=== PATIENT | male | born 1960 | race Two or more races ===

== ENCOUNTER → 2024-11-03 | Outpatient (CLI) | payer MEDICAID, SELFPAY ==
[2024-11-03 08:08] LABS: Collection Type, Urine Clean Catch
[2024-11-03 08:28] LABS: Basophils # (Auto) 0.0 Thou/mm3 (0.0-0.2); Basophils % (Auto) 0 % (0-2.5); Eosinophils # (Auto) 0.5 Thou/mm3 (0.0-0.5); Eosinophils % (Auto) 5 % (0-10); Hematocrit 29.0 % (41.0-53.0); Immature Granulocytes Auto 0.28 Thou/mm3 (0.00-0.00); Lymphocytes # (Auto) 0.9 Thou/mm3 (1.0-4.8); Lymphocytes % (Auto) 7 % (10-50); Mean Corpuscular HGB Conc 30.0 g/dl (31.0-37.0); Mean Corpuscular Hemoglobin 24.9 pg (25.0-35.0); Mean Corpuscular Volume 83 fL (80-100); Monocytes # (Auto) 0.9 Thou/mm3 (0.0-0.8); Monocytes % (Auto) 7 % (0-12); Neutrophils # (Auto) 9.3 Thou/mm3 (1.8-7.7); Neutrophils % (Auto) 78 % (37-80); Nucleated Red Blood Cell # 0.00 Thou/mm3 (0.00-0.00); Nucleated Red Blood Cell % 0 /100 WBC (0); Platelet Count 481 Thou/mm3 (140-440); RDW Standard Deviation 53.7 fL (35.1-43.9); Red Blood Count 3.49 Miln/mm3 (4.50-5.90); White Blood Count 11.9 Thou/mm3 (3.8-10.6)
[2024-11-03 08:44] LABS: Vitamin D 25 Hydroxy Total 17.4 ng/mL (7.3-40.2)
[2024-11-03 08:45] LABS: Hemoglobin 8.7 g/dL (13.5-16.0)
[2024-11-03 08:52] LABS: Albumin, Serum 3.7 gm/dL (3.4-4.8); Anion Gap 12 (7-16); BUN/Creatinine Ratio 11 Ratio (12-20); Blood Urea Nitrogen 16 mg/dL (9-23); Calcium 10.1 mg/dL (8.3-10.6); Calcium (Corrected) 10.3 mg/dL (8.5-10.1); Carbon Dioxide 25.1 mMol/L (20.0-31.0); Chloride 101 mMol/L (98-107); Creatinine (Component) 1.4 mg/dL (0.6-1.3); Glucose 108 mg/dL (74-106); Osmolality,Calculated 277 (275-295); Phosphorous 2.6 mg/dL (2.4-5.1); Potassium 5.2 mMol/L (3.4-5.1); Sodium 138 mMol/L (136-145); eGFR 55 See Note
[2024-11-03 08:55] LABS: Parathyroid Hormone Intact 90.9 pg/ml (18.5-88.0)
[2024-11-03 08:59] LABS: Bilirubin,Urine Negative (Negative); Blood,Urine Negative (Negative); Clarity,Urine Clear (Clear/Hazy); Color,Urine Yellow (Lt Yel-Yel); Glucose, Urine Negative (Negative); Ketones,Urine Negative (Negative); Leukocyte Esterase,Urine Negative (Negative); Nitrite,Urine Negative (Negative); PH,Urine 5.5 (5.0-7.0); Protein,Urine 1+ (Neg - Trace); RBC,Urine 1 /hpf (0-3); Specific Gravity,Urine 1.023 (1.001-1.035); Squamous Epithelial Cell,Urine 2 /hpf (0-5); Urobilinogen,Urine 2.0 mg/dL (0.0-1.0); WBC,Urine 5 /hpf (0-5)
[2024-11-03 09:05] LABS: Creatinine MALB Rnd Ur 153 mg/dL (30-125); Microalbumin Creat Ratio 26 mg/gCrea (<30); Microalbumin, Random Urine 40 mg/L (0-300)
== END | disposition home or self-care (01) ==
LOC: COPL 07:31
PROVIDERS: PCP Family Medicine; Referring Provider Internal Medicine; Visit Provider Internal Medicine
DX: N17.9 Acute kidney failure, unspecified (principal); I10 Essential (primary) hypertension; E83.52 Hypercalcemia
CPT/HCPCS: 36415; 80069; 81001; 82043; 82306; 82570; 83970; 85025

== ENCOUNTER 2024-12-10 08:04 | Outpatient (RCR) | payer MEDICAID, SELFPAY ==
--- NOTE | 2024-11-30 11:05 | CTCFLWUP_ITS ---
Patient: RADHA PENALOZA : 1960 Page 2 of 5 FOLLOW UP NOTE DATE OF SERVICE: 11/30/2024 NAME: RADHA PENALOZA ACCOUNT: [id number] : 1960 AGE: 64 ONCOLOGY HISTORY: DIAGNOSIS: Diffuse large B-cell lymphoma, unspecified site [ICD10] C83.30 DATE OF DIAGNOSIS: 10/04/2024 STAGE/TNM: TREATMENT HISTORY: Care?Plan Start?Date Cycle Day Intent CHOP?+?Rituximab?375?mg/m*2?camacho 12/10/2024 1 21 Palliative HISTORY OF PRESENT ILLNESS: Patient here to establish care for diffuse large B-cell lymphoma. Patient received first cycle at [facility]. Patient do not have a port. Patient tolerated first cycle well OTHER MEDICAL HISTORY/CONDITIONS: FAMILY HISTORY: Cancer?History:?Denies SOCIAL HISTORY: MEDICATIONS: 1. acetaminophen - 325 mg tab As directed 2. allopurinol - 300 mg 1 tab Daily 3. chlorhexidine gluconate - 0.12 % 15 mL Daily 4. diclofenac sodium - 1 % Daily 5. docusate sodium - 50 mg 2 Capsule Twice a Day 6. furosemide - 20 mg 1 tab Daily 7. metFORMIN - 500 mg 1 tab Twice a Day 8. ondansetron - 4 mg 1 tab Twice a Day 9. ondansetron - 16 mg 1 tab every 8 hrs as needed for nausea 10. oxycodone - 5 mg 1 tab Every 6 Hours 11. pantoprazole - 40 mg 1 Daily Medications Last Reconciled by Radha Maguire RN on 11/30/2024 ALLERGIES: No Known Drug Allergies REVIEW OF SYSTEMS: A complete 14-point review of systems was performed and is negative except as noted in interval history. PHYSICAL EXAMINATION: VITAL SIGNS: Temperature?97.9, B/P?113/68, Height?61?inches, Oxygen?Saturation?96% Weight?160?lbs PAIN: 0 - No pain ECOG Performance Status: 3 - Symptomatic; limited self-care; spends >50% of time in bed, not bedridden GENERAL APPEARANCE: Appears well, in no apparent distress, appropriately interactive. HEENT: Normocephalic, no temporal wasting, normal conjunctiva, no scleral icterus, normal hearing, lips without lesions, neck normal range of motion. CARDIOVASCULAR: Not assessed. PULMONARY: Normal respiratory effort, no respiratory distress or use of accessory muscles, speaking in full sentences, no tachypnea. EXTREMITIES: No pedal edema or cyanosis. SKIN: Normal skin appearance. NEUROLOGIC: Alert and oriented x4. PSHYCHIATRIC: Appropriate affect, mood normal, behavior normal, intact thought and speech. Patient is in a wheelchair secondary to involvement of his spine with a tumor LABORATORY DATA: I have personally reviewed and interpreted each of the patient?s relevant lab tests, abnormal findings are below: Date ASSESSMENT/PLAN: Diffuse large B-cell lymphoma cycle 1 completed outside Will get records from [facility] Continue therapy with cycle 2 Echocardiogram hepatitis panel labs ordered Allopurinol for tumor lysis syndrome prophylaxis Doxycycline for skin ulcers Magic mouthwash ordered RTC in 4 weeks Echocardiogram prechemo Port catheter ORDERS: Order # Description [id number] Port Placement [id number] Hep A, B and C panel [id number] Cardiac ECHO [id number] Comprehensive Metabolic Panel - 12 + CBC with Auto Diff + Uric Acid, Serum [id number] Lactate Dehydrogenase (LDH) [id number] Ferritin + Iron Panel + Reticulocyte Count + Vitamin B-12 + Folic Acid; Serum [id number] Cardiac ECHO [id number] CBC + Comprehensive Metabolic Panel [id number] Lab Appointment [id number] Follow Up Appointment [id number] CBC + Comprehensive Metabolic Panel [id number] Lab Appointment [id number] Follow Up Appointment [id number] CBC + Comprehensive Metabolic Panel [id number] Lab Appointment [id number] Follow Up Appointment [id number] CBC + Comprehensive Metabolic Panel [id number] Lab Appointment [id number] Follow Up Appointment [id number] CBC + Comprehensive Metabolic Panel [id number] Lab Appointment [id number] Follow Up Appointment RETURN TO CLINIC: I reviewed the diagnosis, prognosis, and recommended treatment/procedure options with the patient (and/or their legal customer operations representative), including the potential benefits, risks, side effects and alternative therapies. We also discussed the option of no treatment and the possibility of clinical trial participation, if applicable. All questions were addressed, and they demonstrated understanding. They provided informed consent to proceed with the proposed plan of care. BILLING AND COMPLIANCE: I reviewed external records from providers outside my specialty as summarized above. I spent a total of 50 minutes on this patient?s care on the day of their visit excluding time spent related to any billed procedures. This time includes time spent with the patient as well as time spent documenting in the medical record, reviewing patients records and tests, obtaining history, placing orders, communicating with other healthcare professionals, counseling the patient, family or caregiver, and/or care coordination for the diagnoses above. Electronically Signed by: {Object.Sanct_ID*PnP.NameFL@M}, {Object.Sanct_ID*PnP.Suffix@U} D: {Object.Sanct_Date} T: {Object.Sanct_Time} CC: PCP: Suki Mireles Referring: Suki Mireles This document was completed utilizing speech recognition software. Grammatical errors, random word insertions, pronoun errors, and incomplete sentences are an occasional consequence of this system due to software limitations, ambient noise, and hardware issues. Any formal questions or concerns about the content, text or information contained within the body of this dictation should be directly addressed to the provider for clarification.
== END 2024-12-12 23:59 | disposition home or self-care (01) ==
LOC: SCTC 08:04
PROVIDERS: PCP Family Medicine; Referring Provider Family Medicine; Visit Provider Internal Medicine Hematology & Oncology
DX: C83.33 Diffuse large B-cell lymphoma, intra-abdominal lymph nodes (principal)
CPT/HCPCS: 99213; G0463

== ENCOUNTER 2024-12-22 08:08 | Outpatient (CLI) | payer MEDICAID, SELFPAY ==
[2024-12-20 13:22] VITALS: BMI 30.2
[2024-12-21 14:05] LABS: Basophils # (Auto) 0.1 Thou/mm3 (0.0-0.2); Basophils % (Auto) 0 % (0-2.5); Eosinophils # (Auto) 0.3 Thou/mm3 (0.0-0.5); Eosinophils % (Auto) 2 % (0-10); Hematocrit 29.0 % (41.0-53.0); Hemoglobin 8.9 g/dL (13.5-16.0); Immature Granulocytes Auto 0.71 Thou/mm3 (0.00-0.00); Lymphocytes # (Auto) 1.0 Thou/mm3 (1.0-4.8); Lymphocytes % (Auto) 6 % (10-50); Mean Corpuscular HGB Conc 30.7 g/dl (31.0-37.0); Mean Corpuscular Hemoglobin 26.4 pg (25.0-35.0); Mean Corpuscular Volume 86 fL (80-100); Monocytes # (Auto) 0.8 Thou/mm3 (0.0-0.8); Monocytes % (Auto) 5 % (0-12); Neutrophils # (Auto) 13.9 Thou/mm3 (1.8-7.7); Neutrophils % (Auto) 83 % (37-80); Nucleated Red Blood Cell # 0.00 Thou/mm3 (0.00-0.00); Nucleated Red Blood Cell % 0 /100 WBC (0); Platelet Count 358 Thou/mm3 (140-440); RDW Standard Deviation 67.1 fL (35.1-43.9); Red Blood Count 3.37 Miln/mm3 (4.50-5.90); White Blood Count 16.8 Thou/mm3 (3.8-10.6)
[2024-12-21 14:12] LABS: Blood Urea Nitrogen 17 mg/dL (9-23); Creatinine (Component) 0.8 mg/dL (0.6-1.3); Estimated Creatinine Clearance 77.6 mL/min (>60); INR 1.1 (0.9-1.3); Partial Thromboplastin Time 31.2 Seconds (22.0-36.0); Prothrombin Time 11.5 Seconds (9.0-12.2); eGFR > 60 See Note
[2024-12-22] VITALS (11 sets, daily range): BP systolic 118–148; BP diastolic 62–88; PULSE 60–73; RESP 12–20; TEMP 36.2–36.8; O2SAT 98–100
--- NOTE | 2024-12-22 09:00 | XR_ITS ---
Examination: Central line placement, triple lumen catheter. Ultrasound-guided needle placement right internal jugular vein. Fluoroscopy AP Chest, portable single view Exam date and time: December 22, 2024, 9:45 AM INDICATIONS: Diagnosis lymphoma, need for long-term intravenous antibiotic therapy. Informed consent provided Technique: A timeout was completed, verifying correct patient, procedure, site, positioning, and special equipment if applicable The patient was placed in a dependent position appropriate for central line placement based on the vein to be cannulated. The patient's right neck was prepped and draped in sterile fashion. Maximum Sterile Barrier Technique used including cap, mask, sterile gown, sterile gloves, and sterile full body drape. If ultrasound technique used: sterile gel and sterile probe covers. Hand Hygiene performed using proper scrub, soap and water, or alcohol-based hand rub. Site right portable apparatus utilized to confirm patency right internal jugular vein. Utilizing ultrasonographic guidance successful 21-gauge needle puncture right internal jugular vein Ultrasound images were recorded and stored. Successful micropuncture with a 21-gauge needle was performed. 0.18 wire guide was introduced into the IVC under fluoroscopic guidance. The wires is then exchanged for a 0.25 J-wire guide placed in the vena cava. Blunt dissection utilized for subcutaneous pocket and the upper right chest Port-A-Cath reservoir connected to 24 cm 8 E[place] line placed through a venous sheath into the superior vena cava Port-A-Cath incision site sutured Estimated blood loss 4 cc The attending radiologist was present for the entire procedure Findings: Under fluoroscopy, the tip of the catheter is in good position in the vena cava. Portable chest x-ray, post line placement, as ordered. Impression: Successful ultrasound-guided needle placement right internal jugular vein. Successful IR venous implantation Port-A-Cath Fluoroscopy 0.1 minute radiation dose 1.07 milligray 1 spot fluoroscopic chest film. AP portable chest completion procedure demonstrates satisfactory position Port-A-Cath tip SVC. May use Port-A-Cath
[2024-12-22] MEDS: fentaNYL CIT INJ 50 mCg/ML AMP 2ML 75 MCG IVP (10:29)
[2024-12-22] MEDS: LIDOCAINE 1% W/EPI 1:100K 20 ML VIAL 5 ML INFL (10:31)
[2024-12-22] MEDS: HEPARIN SOD LOCK SYR 100 UNIT/ML 500 UNIT STFIELD (10:31)
[2024-12-22] MEDS: LIDOCAINE INJ PF 1% 30 ML VIAL 5 ML EPID (10:31)
[2024-12-22] MEDS: ceFAZolin/D5W 1 GM IVPB 1 GM/50 ML BAG IV (10:31)
[2024-12-22] MEDS: SODIUM CHLORIDE 0.9% 500 ML 500 ML 20 ML IV (10:31)
--- NOTE | 2024-12-22 12:00 | PC.NURSE ---
patient transfered to private vehicle via wheelchair. education given to patient and daughter via assistant construction superintendent zac larkin. both expressed verbal understanding. site is soft, flat, slightly tender, and no signs of hematoma. dressing is clean, dry, and intact.
== END 2024-12-22 12:10 | disposition home or self-care (01) ==
PROVIDERS: Radiology Diagnostic Radiology; PCP Family Medicine; Referring Provider Internal Medicine Hematology & Oncology; Visit Provider Internal Medicine Hematology & Oncology
DX: C83.30 Diffuse large B-cell lymphoma, unspecified site (principal); Z01.812 Encounter for preprocedural laboratory examination
CPT/HCPCS: 36558; 36415; 76937; 77001; 82565; 84520; 85025; 85610; 85730; C1769; C1788; C1894; J0689; J0690; J1642; J3010; J3490; J7050; J7999

== ENCOUNTER → 2024-12-23 | Outpatient (CLI) | payer MEDICAID, SELFPAY ==
--- NOTE | 2024-12-23 09:30 | ECHO_ITS ---
Transthoracic Echo Report Ht (in): 61 Wt (lb): 140 Exam Location: Echo Lab Status: Outpatient Reroller Hand: Yohana Hanna Indications: Procedure Performed: BP: 113 / 87 HR: 84 MEASUREMENTS (Male / Female) Normal Values 2D ECHO LV Diastolic Diameter PLAX 5.4 cm 4.2 - 5.9 / 3.9 - 5.3 cm LV Systolic Diameter PLAX 3.4 cm IVS Diastolic Thickness 0.7 cm 0.6 - 1.0 / 0.6 - 0.9 cm LVPW Diastolic Thickness 1.1 cm 0.6 - 1.0 / 0.6 - 0.9 cm LV Relative Wall Thickness 0.3 LVOT Diameter 1.9 cm LA Volume Index 45.8 cm?/m? 16 - 28 cm?/m? Ascending Aorta Diameter 3.2 cm M-MODE AV Cusp Separation MM 1.3 cm DOPPLER AV Peak Velocity 125.0 cm/s AV Peak Gradient 6.3 mmHg AV Mean Gradient 3.0 mmHg AV Velocity Time Integral 21.7 cm LVOT Peak Velocity 80.7 cm/s LVOT Peak Gradient 2.6 mmHg LVOT Velocity Time Integral 17.2 cm LVOT Cardiac Index 2453.1 cm?/min?m? AV Area Cont Eq vti 2.2 cm? AV Area Cont Eq pk 1.8 cm? MV Area PHT 4.0 cm? Mitral E Point Velocity 55.7 cm/s Mitral A Point Velocity 62.7 cm/s Mitral E to A Ratio 0.9 LV E' Lateral Velocity 9.1 cm/s Mitral E to LV E' Lateral Ratio 6.1 LV E' Septal Velocity 8.2 cm/s Mitral E to LV E' Septal Ratio 6.8 TR Peak Velocity 220.0 cm/s TR Peak Gradient 19.4 mmHg PV Peak Velocity 102.0 cm/s PV Peak Gradient 4.2 mmHg FINDINGS Left Ventricle Normal left ventricular size, wall thickness, systolic function with no obvious regional wall motion . The ejection fraction is visually estimated at 60 %. Right Ventricle The right ventricle is normal in size and systolic function. Left Atrium The left atrial cavity size is mildly increased. Right Atrium The right atrium is normal by two-dimensional imaging, color flow and Doppler imaging with no structural abnormalities, no thrombus formation present. Atrial Septum The interatrial septum appears normal with no evidence of a shunt. Aorta The aorta is normal by two-dimensional, color flow and Doppler interrogation. Mitral Valve The mitral valve is normal by two-dimensional, color flow and Doppler interrogation. There is no significant mitral valve regurgitation, stenosis or prolapse. Aortic Valve Aortic valve sclerosis without stenosis. Tricuspid Valve The tricuspid valve is normal by two-dimensional, color flow and Doppler interrogation. There is mild tricuspid valve regurgitation. Pulmonic Valve The pulmonic valve is not well visualized. There is no significant pulmonic valve regurgitation. Vessels The pulmonary artery appears normal. The inferior vena cava pulmonary and hepatic veins appear normal. Pericardium The pericardium is normal by two-dimensional imaging. There is no significant pericardial effusion. CONCLUSIONS Indication: Diffuse large B-cell llymphoma, unspecified site. Normal left ventricular size and function. LVEF estimated 60% The right ventricle is normal in size and systolic function. Mild dilated LA Aortic valve sclerosis without stenosis. trace mitral and trace tricuspid regurgitation Ana Meza (Electronically Signed) Final Date: 23 December 2024 18:08
== END | disposition home or self-care (01) ==
PROVIDERS: PCP Family Medicine; Referring Provider Internal Medicine Hematology & Oncology; Visit Provider Internal Medicine Hematology & Oncology
DX: I08.1 Rheumatic disorders of both mitral and tricuspid valves (principal); I35.8 Other nonrheumatic aortic valve disorders; C83.30 Diffuse large B-cell lymphoma, unspecified site
CPT/HCPCS: 93306

== ENCOUNTER 2025-01-06 11:41 | Outpatient (RCR) | payer MEDICAID, SELFPAY ==
[2024-12-27 16:08] LABS: Immature Reticulocyte Fraction 28.9 % (2.3-13.4); Reticulocyte % (Auto) 3.5 % (0.5-1.5); Reticulocyte Absolute Auto 102.5 Biln/L (25.0-75.0); Reticulocyte Hgb Content 30.6 pg (28.0-35.0)
[2024-12-27 16:09] LABS: Basophils # (Auto) 0.0 Thou/mm3 (0.0-0.2); Basophils % (Auto) 0 % (0-2.5); Eosinophils # (Auto) 0.3 Thou/mm3 (0.0-0.5); Eosinophils % (Auto) 3 % (0-10); Hematocrit 25.7 % (41.0-53.0); Immature Granulocytes Auto 0.16 Thou/mm3 (0.00-0.00); Lymphocytes # (Auto) 1.1 Thou/mm3 (1.0-4.8); Lymphocytes % (Auto) 10 % (10-50); Mean Corpuscular HGB Conc 30.7 g/dl (31.0-37.0); Mean Corpuscular Hemoglobin 26.9 pg (25.0-35.0); Mean Corpuscular Volume 87 fL (80-100); Monocytes # (Auto) 0.5 Thou/mm3 (0.0-0.8); Monocytes % (Auto) 5 % (0-12); Neutrophils # (Auto) 8.4 Thou/mm3 (1.8-7.7); Neutrophils % (Auto) 80 % (37-80); Nucleated Red Blood Cell # 0.00 Thou/mm3 (0.00-0.00); Nucleated Red Blood Cell % 0 /100 WBC (0); Platelet Count 347 Thou/mm3 (140-440); RDW Standard Deviation 68.5 fL (35.1-43.9); Red Blood Count 2.94 Miln/mm3 (4.50-5.90); White Blood Count 10.5 Thou/mm3 (3.8-10.6)
[2024-12-27 16:19] LABS: Hemoglobin 7.9 g/dL (13.5-16.0)
[2024-12-27 16:29] LABS: Uric Acid 4.0 mg/dL (3.7-9.2)
[2024-12-27 16:33] LABS: Ferritin 1280 ng/mL (10.5-307.3); Iron 31 mcg/dL (65-175); Percent Iron Saturation 16 % (20-55); Total Iron Binding Capacity 191 mcg/dL (250-425); Unsaturated Iron Binding 160 (225-295)
[2024-12-27 16:42] LABS: Alanine Aminotransferase 12 U/L (10-49); Albumin, Serum 2.9 gm/dL (3.4-4.8); Albumin/Globulin Ratio 1.2 (1.2-2.2); Alkaline Phosphatase 152 U/L (46-116); Anion Gap 9 (7-16); Aspartate Amino Transferase 16 U/L (0-34); BUN/Creatinine Ratio 14 Ratio (12-20); Bilirubin,Total 0.3 mg/dL (0.3-1.2); Blood Urea Nitrogen 11 mg/dL (9-23); Calcium 9.1 mg/dL (8.3-10.6); Calcium (Corrected) 10.0 mg/dL (8.5-10.1); Carbon Dioxide 26.2 mMol/L (20.0-31.0); Chloride 107 mMol/L (98-107); Creatinine (Component) 0.8 mg/dL (0.6-1.3); Globulin 2.5 gm/dL (2.3-3.5); Glucose 105 mg/dL (74-106); LDH (Lactate Dehydrogenase) 175 U/L (120-246); Osmolality,Calculated 282 (275-295); Potassium 3.8 mMol/L (3.4-5.1); Sodium 142 mMol/L (136-145); Total Protein 5.4 gm/dL (5.7-8.2); eGFR > 60 See Note
[2024-12-27 17:06] LABS: Folate 5.36 ng/mL (>5.38); Hepatitis A Antibody IgM Non Reactive (Non React); Hepatitis B Core Antibody IgM Non Reactive (Non React); Hepatitis B Surface Antigen Non Reactive (Non React); Hepatitis C Antibody Non Reactive (Non React); Vitamin B12 1074 pg/mL (211-911)
== END 2025-01-11 23:59 | disposition home or self-care (01) ==
LOC: SCTC 11:41
PROVIDERS: PCP Internal Medicine; Referring Provider Internal Medicine; Visit Provider Internal Medicine Hematology & Oncology
DX: Z51.11 Encounter for antineoplastic chemotherapy (principal); C83.30 Diffuse large B-cell lymphoma, unspecified site; D64.9 Anemia, unspecified; R60.0 Localized edema; R79.89 Other specified abnormal findings of blood chemistry; R11.0 Nausea; R53.83 Other fatigue
CPT/HCPCS: 36430; 36591; 80053; 80074; 82607; 82728; 82746; 83540; 83550; 83615; 84550; 85025; 85046; 86850; 86900; 86901; 86923; 96367; 96372; 96375; 96411; 96413; 96415; 99212; 99424; 99425; A4216; J1100; J1200; J1453; J1642; J2469; J3490; J7040; J7050; J9000; J9075; J9370; P9016; Q5115; Q5122; A9270; G0463; J2506

== ENCOUNTER 2025-02-10 10:01 | Outpatient (RCR) | payer MEDICAID, SELFPAY ==
[2025-01-17 16:10] LABS: Basophils # (Auto) 0.0 Thou/mm3 (0.0-0.2); Basophils % (Auto) 0 % (0-2.5); Eosinophils # (Auto) 0.0 Thou/mm3 (0.0-0.5); Eosinophils % (Auto) 0 % (0-10); Hematocrit 26.5 % (41.0-53.0); Immature Granulocytes Auto 0.11 Thou/mm3 (0.00-0.00); Lymphocytes # (Auto) 1.3 Thou/mm3 (1.0-4.8); Lymphocytes % (Auto) 14 % (10-50); Mean Corpuscular HGB Conc 31.3 g/dl (31.0-37.0); Mean Corpuscular Hemoglobin 28.5 pg (25.0-35.0); Mean Corpuscular Volume 91 fL (80-100); Monocytes # (Auto) 0.7 Thou/mm3 (0.0-0.8); Monocytes % (Auto) 7 % (0-12); Neutrophils # (Auto) 7.0 Thou/mm3 (1.8-7.7); Neutrophils % (Auto) 76 % (37-80); Nucleated Red Blood Cell # 0.03 Thou/mm3 (0.00-0.00); Nucleated Red Blood Cell % 0 /100 WBC (0); Platelet Count 331 Thou/mm3 (140-440); RDW Standard Deviation 65.8 fL (35.1-43.9); Red Blood Count 2.91 Miln/mm3 (4.50-5.90); White Blood Count 9.2 Thou/mm3 (3.8-10.6)
[2025-01-17 16:36] LABS: Hemoglobin 8.3 g/dL (13.5-16.0)
[2025-01-17 16:47] LABS: Alanine Aminotransferase < 7 U/L (10-49); Albumin, Serum 3.1 gm/dL (3.4-4.8); Albumin/Globulin Ratio 1.4 (1.2-2.2); Alkaline Phosphatase 120 U/L (46-116); Anion Gap 8 (7-16); Aspartate Amino Transferase 12 U/L (0-34); BUN/Creatinine Ratio 13 Ratio (12-20); Bilirubin,Total 0.3 mg/dL (0.3-1.2); Blood Urea Nitrogen 13 mg/dL (9-23); Calcium 9.6 mg/dL (8.3-10.6); Calcium (Corrected) 10.3 mg/dL (8.5-10.1); Carbon Dioxide 25.9 mMol/L (20.0-31.0); Chloride 109 mMol/L (98-107); Creatinine (Component) 1.0 mg/dL (0.6-1.3); Globulin 2.2 gm/dL (2.3-3.5); Glucose 118 mg/dL (74-106); LDH (Lactate Dehydrogenase) 184 U/L (120-246); Osmolality,Calculated 286 (275-295); Potassium 3.9 mMol/L (3.4-5.1); Sodium 143 mMol/L (136-145); Total Protein 5.3 gm/dL (5.7-8.2); Uric Acid 3.7 mg/dL (3.7-9.2); eGFR > 60 See Note
[2025-01-18 10:00] LABS: Ferritin 1155 ng/mL (10.5-307.3)
[2025-02-03 08:54] LABS: Hematocrit 27.5 % (41.0-53.0); Hemoglobin 8.9 g/dL (13.5-16.0)
[2025-02-07 15:49] LABS: Basophils # (Auto) 0.1 Thou/mm3 (0.0-0.2); Basophils % (Auto) 1 % (0-2.5); Eosinophils # (Auto) 0.0 Thou/mm3 (0.0-0.5); Eosinophils % (Auto) 0 % (0-10); Hematocrit 26.4 % (41.0-53.0); Immature Granulocytes Auto 0.10 Thou/mm3 (0.00-0.00); Lymphocytes # (Auto) 1.0 Thou/mm3 (1.0-4.8); Lymphocytes % (Auto) 12 % (10-50); Mean Corpuscular HGB Conc 31.8 g/dl (31.0-37.0); Mean Corpuscular Hemoglobin 29.7 pg (25.0-35.0); Mean Corpuscular Volume 93 fL (80-100); Monocytes # (Auto) 0.6 Thou/mm3 (0.0-0.8); Monocytes % (Auto) 7 % (0-12); Neutrophils # (Auto) 6.4 Thou/mm3 (1.8-7.7); Neutrophils % (Auto) 78 % (37-80); Nucleated Red Blood Cell # 0.02 Thou/mm3 (0.00-0.00); Nucleated Red Blood Cell % 0 /100 WBC (0); Platelet Count 321 Thou/mm3 (140-440); RDW Standard Deviation 61.9 fL (35.1-43.9); Red Blood Count 2.83 Miln/mm3 (4.50-5.90); White Blood Count 8.2 Thou/mm3 (3.8-10.6)
[2025-02-07 15:51] LABS: Hemoglobin 8.4 g/dL (13.5-16.0)
[2025-02-07 16:23] LABS: Alanine Aminotransferase < 7 U/L (10-49); Albumin, Serum 3.8 gm/dL (3.4-4.8); Albumin/Globulin Ratio 2.1 (1.2-2.2); Alkaline Phosphatase 112 U/L (46-116); Anion Gap 10 (7-16); Aspartate Amino Transferase 16 U/L (0-34); BUN/Creatinine Ratio 13 Ratio (12-20); Bilirubin,Total 0.3 mg/dL (0.3-1.2); Blood Urea Nitrogen 12 mg/dL (9-23); Calcium 9.5 mg/dL (8.3-10.6); Calcium (Corrected) 9.7 mg/dL (8.5-10.1); Carbon Dioxide 26.2 mMol/L (20.0-31.0); Chloride 109 mMol/L (98-107); Creatinine (Component) 0.9 mg/dL (0.6-1.3); Globulin 1.8 gm/dL (2.3-3.5); Glucose 88 mg/dL (74-106); LDH (Lactate Dehydrogenase) 264 U/L (120-246); Osmolality,Calculated 287 (275-295); Potassium 4.1 mMol/L (3.4-5.1); Sodium 145 mMol/L (136-145); Total Protein 5.6 gm/dL (5.7-8.2); Uric Acid 7.6 mg/dL (3.7-9.2); eGFR > 60 See Note
== END 2025-02-11 23:59 | disposition home or self-care (01) ==
LOC: SCTC 10:01
PROVIDERS: PCP Family Medicine; Referring Provider Internal Medicine; Visit Provider Internal Medicine Hematology & Oncology
DX: Z51.11 Encounter for antineoplastic chemotherapy (principal); C83.33 Diffuse large B-cell lymphoma, intra-abdominal lymph nodes; D64.9 Anemia, unspecified; R60.0 Localized edema; R79.89 Other specified abnormal findings of blood chemistry; R11.0 Nausea; R53.83 Other fatigue
CPT/HCPCS: 36591; 80053; 82728; 83615; 84550; 85014; 85018; 85025; 86850; 86900; 86901; 96360; 96367; 96368; 96372; 96409; 96411; 96413; 96415; 99211; A4216; J1100; J1434; J1642; J2469; J3490; J7030; J7040; J7050; J9000; J9075; J9370; Q5115; Q5122; A9270; G0463; J2506

== ENCOUNTER 2025-02-21 20:12 | Emergency (ER) | payer MEDICAID, SELFPAY ==
[2025-02-21 20:14] VITALS: BMI 30.2
[2025-02-21 21:55] VITALS: BP 142/64; PULSE 76; RESP 17; TEMP 36.7; O2SAT 96
--- NOTE | 2025-02-21 22:32 | XR_ITS ---
Examination: CT abdomen with intravenous contrast CT pelvis with intravenous contrast 2-D coronal reconstructions 2-D sagittal reconstructions Date and time of exam: February 22, 2025, 0020 hours INDICATIONS: Diagnosis lymphoma, October 2024 abdominal pain nausea vomiting. Beginning 3 days ago CTDI: vol (mGy) 7.23 DLP: (mGycm) 415 Technique: Multiple axial sections of the abdomen and pelvis have been obtained. 64 slice high-resolution scanner used. 3 mm axial sections have been obtained, post intravenous injection 60 cc [id number] 2-D sagittal, coronal reconstructions obtained. Low dose protocols were performed. One or more of the following dose reduction techniques were used; automated exposure control, adjustment of the mA and/or KV according to patient size, use of iterative reconstruction technique. Findings: Moderate enlargement cardiac contour with trace pericardial effusion Liver is nodular in contour with fatty infiltration, enlarged 17 cm Spleen 12.5 cm Multiple poorly defined splenic lesions Acute calculus cholecystitis, distended gallbladder with gallbladder wall thickening and inflammatory change Numerous periaortic pericaval and mesenteric lymph nodes with edema in the mesentery No hydronephrosis Aorta is not enlarged Minimal ascites 17 mm fat-containing umbilical hernia Colonic diverticulosis Urinary bladder wall is thickened Prostatomegaly 4.9 cm Fat-containing inguinal hernias Diffuse sclerotic bones alternating with areas of radiolucency Acute appearing compression fractures L3, L2, L1, T11, T8 IMPRESSION: Cirrhosis Hepatomegaly. Acute calculus cholecystitis. Multiple splenic lesions Extensive abdominal and mesenteric lymphadenopathy Minimal ascites Widespread osseous metastatic disease Pathologic vertebral body fractures as above, consider MRI cervical thoracic lumbar spine postcontrast follow-up Consider PET/CT scan follow-up
--- NOTE | 2025-02-21 22:33 | PD.EDRME ---
Rapid Medical Screening Exam RME Arrival date/time: 02/21/25 20:12 64-year-old male with a history of B-cell lymphoma reports with complaint of abdominal pain x 1 day Chief Complaint: Abdominal Pain Time Seen by Provider: 02/21/25 21:48 Vital signs: Vital Signs Temperature 98.1 F 02/21/25 21:55 Pulse Rate 76 02/21/25 21:55 Respiratory Rate 17 02/21/25 21:55 Blood Pressure 142/64 H 02/21/25 21:55 Pulse Oximetry (%) 96 02/21/25 21:55 Oxygen Delivery Method Room Air 02/21/25 21:55 Exam: ? Clinical Impression: ?
[2025-02-21 23:01] LABS: Collection Type, Urine Clean Catch
[2025-02-21 23:08] LABS: Amorphous Crystals,Urine Present (Absent); Bacteria,Urine Rare; Bilirubin,Urine Negative (Negative); Blood,Urine Negative (Negative); Clarity,Urine Turbid (Clear/Hazy); Color,Urine Yellow (Lt Yel-Yel); Culture Indicated,Urine Not Indicated; Glucose, Urine Negative (Negative); Ketones,Urine Negative (Negative); Leukocyte Esterase,Urine Negative (Negative); Nitrite,Urine Negative (Negative); PH,Urine 7.0 (5.0-7.0); Protein,Urine 1+ (Neg - Trace); RBC,Urine 2 /hpf (0-3); Specific Gravity,Urine 1.022 (1.001-1.035); Squamous Epithelial Cell,Urine 1 /hpf (0-5); Urobilinogen,Urine 2.0 mg/dL (0.0-1.0); WBC,Urine 1 /hpf (0-5)
[2025-02-21 23:08] LABS: Basophils # (Auto) 0.1 Thou/mm3 (0.0-0.2); Basophils % (Auto) 1 % (0-2.5); Eosinophils # (Auto) 0.0 Thou/mm3 (0.0-0.5); Eosinophils % (Auto) 0 % (0-10); Hematocrit 32.0 % (41.0-53.0); Hemoglobin 10.3 g/dL (13.5-16.0); Immature Granulocytes Auto 0.67 Thou/mm3 (0.00-0.00); Lymphocytes # (Auto) 0.6 Thou/mm3 (1.0-4.8); Lymphocytes % (Auto) 8 % (10-50); Mean Corpuscular HGB Conc 32.2 g/dl (31.0-37.0); Mean Corpuscular Hemoglobin 29.6 pg (25.0-35.0); Mean Corpuscular Volume 92 fL (80-100); Monocytes # (Auto) 0.6 Thou/mm3 (0.0-0.8); Monocytes % (Auto) 9 % (0-12); Neutrophils # (Auto) 5.0 Thou/mm3 (1.8-7.7); Neutrophils % (Auto) 72 % (37-80); Nucleated Red Blood Cell # 0.03 Thou/mm3 (0.00-0.00); Nucleated Red Blood Cell % 0 /100 WBC (0); Platelet Count 200 Thou/mm3 (140-440); RDW Standard Deviation 50.8 fL (35.1-43.9); Red Blood Count 3.48 Miln/mm3 (4.50-5.90); White Blood Count 6.9 Thou/mm3 (3.8-10.6)
[2025-02-21 23:15] LABS: Alanine Aminotransferase 45 U/L (10-49); Albumin, Serum 4.1 gm/dL (3.4-4.8); Albumin/Globulin Ratio 2.2 (1.2-2.2); Alkaline Phosphatase 512 U/L (46-116); Anion Gap 8 (7-16); Aspartate Amino Transferase 169 U/L (0-34); BUN/Creatinine Ratio 14 Ratio (12-20); Bilirubin,Total 1.1 mg/dL (0.3-1.2); Blood Urea Nitrogen 11 mg/dL (9-23); Calcium 10.2 mg/dL (8.3-10.6); Calcium (Corrected) 10.2 mg/dL (8.5-10.1); Carbon Dioxide 29.5 mMol/L (20.0-31.0); Chloride 107 mMol/L (98-107); Creatinine (Component) 0.8 mg/dL (0.6-1.3); Estimated Creatinine Clearance 77.6 mL/min (>60); Globulin 1.9 gm/dL (2.3-3.5); Glucose 114 mg/dL (74-106); Osmolality,Calculated 287 (275-295); Potassium 3.3 mMol/L (3.4-5.1); Sodium 144 mMol/L (136-145); Total Protein 6.0 gm/dL (5.7-8.2); eGFR > 60 See Note
[2025-02-21 23:21] VITALS: BP 133/69; PULSE 72; RESP 17; TEMP 36.8; O2SAT 100
--- NOTE | 2025-02-21 23:23 | PD.EDABDPN ---
ED Abdominal Pain RME/HPI General Chief Complaint: Abdominal Pain Stated complaint: ABD PAIN WITH NV Time seen by provider: 02/21/25 21:48 Arrival date/time: 02/21/25 20:12 RME / HPI RME / HPI narrative: 02/21/25 20:12 64-year-old male with a history of B-cell lymphoma reports with complaint of abdominal pain x [address] Alvarez?s Main ED Evaluation: 64yo male who is undergoing chemotherapy for B-cell lymphoma presenting with generalized lower abdominal pain with associated bloating sensation and several bouts of nonbloody emesis x today. No radiation to his back. No fever, chills, or dysuria. Patient reports having chronic constipation with his last normal bowel movement being earlier tonight. PMH includes B-cell lymphoma, DM, HTN. PSH unremarkable. Social history unremarkable. NKA. Related Data Home Medications ?Medication ?Instructions ?Recorded ?Confirmed acetaminophen 325 mg capsule 325 mg PO Q6H PRN pain 12/22/24 12/22/24 allopurinol 300 mg tablet 300 mg PO QDAY 12/22/24 12/22/24 cholecalciferol (vitamin D3) 1,250 1,250 mcg PO QWEEK 12/22/24 12/22/24 mcg (50,000 unit) capsule furosemide 20 mg tablet 20 mg PO QDAY 12/22/24 12/22/24 metformin 500 mg tablet 500 mg PO BID 12/22/24 12/22/24 ondansetron HCl 8 mg tablet 8 mg PO BID PRN nausea and vomiting 12/22/24 12/22/24 oxycodone 5 mg capsule 5 mg PO Q6H PRN pain 12/22/24 12/22/24 prochlorperazine maleate 5 mg 5 mg PO Q6H PRN nausea and vomiting 12/22/24 12/22/24 tablet (Compazine) sennosides 8.6 mg tablet (senna) 8.6 mg PO QDAY 12/22/24 12/22/24 Previous Rx's ?Medication ?Instructions ?Recorded acetaminophen 300 mg-codeine 15 mg 1 tab PO Q8H PRN pain #14 tabs 02/22/25 tablet promethazine 12.5 mg tablet 12.5 mg PO TID PRN nausea and 02/22/25 vomiting #14 tabs Allergies Allergy/AdvReac Type Severity Reaction Status Date / Time No Known Allergies Allergy Verified 02/21/25 20:18 Review of Systems Review of Systems Systems Reviewed: All systems reviewed, normal except as documented Past Medical History Past Medical History NEUROLOGIC: Negative Neurological Disorders, Cerebrovascular Accident, Transient Ischemic Attacks (TIA), Dementia, Alzheimer's Disease, Parkinson's Disease, Brain Tumor, Meningitis, Seizures, Epilepsy, Multiple Sclerosis, Cerebral Palsy, Amyotrophic Lateral Sclerosis (ALS/Merna Gehrig's), Guillain-Evant Syndrome, Spina Bifida, Paralysis, Peripheral Neuropathy, Greenwood's Palsy, Subdural Hematoma, Migraine, Head Trauma, Spinal Cord Injury or Traumatic Brain Injury CARDIAC: Positive Cardiac Disorders, Hypercholesterolemia, Edema and Hypertension; Negative Myocardial Infarction, Cardiac Arrhythmia, Atrial Fibrillation, Angina, Heart Murmur, Coronary Artery Disease, Atherosclerotic Heart Disease, Peripheral Vascular Disease, Aneurysm, Congestive Heart Failure, Congenital Heart Disease, Valvular Heart Disease, Rheumatic Fever, Cardiomyopathy, Pericarditis, Cellulitis, Deep Vein Thrombosis, Hypotension or Varicose Veins RESPIRATORY: Negative Chronic Obstructive Pulmonary Disease (COPD), Asthma, Bronchitis, Emphysema, Pneumonia, Pulmonary Fibrosis, Cystic Fibrosis, Tuberculosis, Pulmonary Embolism, Pulmonary Edema or Sleep Apnea GASTROINTESTINAL: Positive Gastrointestinal Disorders (NAUSEA W SOME FOODS); Negative Hepatitis, Cirrhosis, Pancreatitis, Celiac Disease, Gall Bladder Disease, Gastrointestinal Bleed, Esophageal Varices, Nguyen's Esophagus, Colitis, Ulcerative Colitis, Diverticulitis, Diverticulosis, Ulcer, Colorectal Cancer, Irritable Bowel, Crohn's Disease, Obstructive Bowel, Hiatal Hernia, Hemorrhoids, Gastroesophageal Reflux Disease or Obesity GENITOURINARY: Positive Renal Disease (CARINE RESOLVED); Negative Kidney Stones, Polycystic Kidney Disease, Neurogenic Bladder, Inguinal Hernia, Dialysis, Prostate Cancer or Benign Prostatic Hyperplasia REPRODUCTIVE: Negative Breast Cancer, Fibroids, Genital Herpes, Gonorrhea, Syphilis or Testicular Cancer MUSCULOSKELETAL: Positive Fractures (COMPRESSURE FRACTURES BACK X4); Negative Musculoskeletal Disorders, Muscular Dystrophy, Myasthenia Gravis, Marfan's Syndrome, Bone Cancer, Arthritis, Rheumatoid Arthritis, Osteoporosis, Degenerative Disk Disease, Gout, Scoliosis, Carpal Tunnel Syndrome, Fibromyalgia, Degenerative Joint Disease, Osteomyelitis or Poliovirus ENT: Negative Cataracts, Glaucoma, Blind, Retinal Detachment, Macular Degeneration, Ear Infection, Deafness, Head Trauma or Eye Prosthesis ENDOCRINE: Positive Endocrine Disorders and Diabetes Mellitus Type 2; Negative Diabetes Mellitus Type 1, Hypoglycemia, Herbert's Syndrome, Jose's Disease, Hyperthyroidism, Hypothyroidism, Parathyroid Disease, Pituitary Disease, Systemic Lupus Erythematosus, Syndrome of Inappropriate Antidiuretic Hormone (SIADH), Adrenal Disease or Graves' Disease HEMATOLOGIC: Positive Blood Disorders and Anemia; Negative Leukemia, Hemophilia, Thalassemia, Sickle Cell Disease or Clotting Problems PSYCHO/SOCIAL: Positive Depression (NO MEDICATION); Negative Psychiatric Problems, Schizophrenia, Recreational Drug Use, Bipolar Disorder, Anxiety, Behavior Problems, Self-Mutilation, Attention Deficit Disorder, Attention Deficit Hyperactivity Disorder, Depression, Post Traumatic Stress Disorder or Eating Disorder OTHER HISTORY: Positive Hospitalization, Falls, Blood Transfusions, Chemotherapy (11/19/2024) and Cancer (LARGE B CELLS LYMPHOMA); Negative Autoimmune Disease, Down Syndrome, Autism, Developmental Delay, Shingles, Blood Transfusion Reaction, Anesthesia Reactions, Organ Transplant, MRSA, VRSA, Vancomycin-Resistant Enterococci, Human Immunodeficiency Virus (HIV), Chicken Pox, Measles, Mumps, Rubella (Turkish Measles), Pertussis, Clostridium Difficile, Breast Cancer, Colorectal Cancer, Lung Cancer, Prostate Cancer or Testicular Cancer Family History FAMILY HISTORY: Positive Family Cancer (FATHER (PROSTATE)); Negative Family Psychiatric Problems, Family Respiratory Disorders, Family Cardiac Disorders, Family Gastrointestinal Problems, Family Surgery or Family Anesthesia Reaction Surgical History SURGICAL: Negative Cardiac Surgery, Open Heart Surgery, Coronary Artery Bypass Graft, Valve Replacement, Vascular Surgery, Coronary Stent, Cardiac Catheterization, Pacemaker, Angiogram, Auto Implanted Cardiovert Defib, Carotid Endarterectomy, Endocrine Surgery, Thyroidectomy, Ear Surgery, Tympanostomy Tube, Eye Surgery, Nose Surgery, Oral Surgery, Tonsillectomy, Adenoidectomy, Cochlear Implant, Corneal Transplant, Throat Surgery, Abdominal Surgery, Tracheostomy, Gastric Bypass Surgery, Gastrostomy, Bowel Surgery, Nephrectomy, Transurethral Resection, Joint Replacement, Amputation, Open Reduction Internal Fixation, Arthroscopy, Neurologic Surgery, Brain Shunt, Mastectomy, Vasectomy or Organ Transplant Social History SMOKING STATUS: Never smoker ED Exam Narrative Physical exam: GENERAL APPEARANCE: alert and oriented x 4, nontoxic, well-developed, well-nourished, reports overall improvement spontaneously, no acute distress VITALS: All vitals were reviewed and the pulse ox is 100% on room air, which is normal according to my interpretation. HEENT: Normocephalic, atraumatic; pupils equal, round, reactive to light; EOMI; mucous membranes pink, moist; oropharynx clear NECK: Supple LUNGS: CTABL; no wheezes, no rales, no rhonchi HEART: Regular rate, regular rhythm; normal S1, S2; no murmurs ABDOMEN: non distended; normal BS; soft, no tenderness, no guarding, no rebound; no masses, no organomegaly, no hernia BACK: no CVA tenderness EXTREMITIES: atraumatic; no edema NEUROLOGIC: awake; alert and oriented x4; cranial nerves II-XII grossly intact; no focal sensory or motor deficits PSYCHIATRIC: appropriate mood and affect SKIN: warm, dry, normal color; no rashes Course Quality Measures none Orders Category Date Time Status CT Screening NOW Care 02/21/25 22:[address] abdomen pelvis w con Stat Exams 02/21/25 22:32 Taken CBC Stat Lab 02/21/25 22:48 Completed CMP [Comprehensive Metabolic Panel] Stat Lab 02/21/25 22:48 Completed UA, C/S IF [Urinalysis, C/S if Indicated] Stat Lab 02/21/25 22:56 Completed Vital Signs Vital signs: Vital Signs Temperature 98.1 F 02/21/25 21:55 Pulse Rate 76 02/21/25 21:55 Respiratory Rate 17 02/21/25 21:55 Blood Pressure 142/64 H 02/21/25 21:55 Pulse Oximetry (%) 96 02/21/25 21:55 Oxygen Delivery Method Room Air 02/21/25 21:55 Abdominal Pain MDM MDM Narrative MDM Narrative:: Scribe Attestation: 02/21/25 Payton Almaraz am scribing for and in the presence of Dr. Alvarez. 64yo male who is undergoing chemotherapy for B-cell lymphoma presenting with generalized lower abdominal pain with associated bloating sensation and several bouts of nonbloody emesis x today. No radiation to his back. Please see PE findings. Lab markers including CBC and chemistries demonstrated normal WBC count, hemoconcentration, no left shift or bandemia, mild thrombocytopenia, slightly low K 3.3, mildly elevated AST 169, Alk Phos 512. UA without signs of infection. Patient remained asymptomatic and is ambulatory without discomfort. CT abdomen pelvis demonstrates ?acute cholecystitis, although changes are likely related to patient's cirrhosis and in the absence of pain or tenderness, will likely require further evaluation. In the absence of toxicity or fever, will defer to outpatient setting. Patient's compression fractures identified are known by daughter to have existed prior to current date and in the absence of LE radiculopathy symptoms, will defer further treatment or evaluation. Dx: nonspecific abdominal pain, lumbar spine compression fractures, history of B-cell lymphoma Patient data External records reviewed:: [facility] previous records (Per chart review, patient has no previous ED visits or admissions to this facility.) Clinical information provided by:: patient Social determinants that could affect healthcare access:: none Patient has the following chronic illnesses:: B cell lymphoma, DM, HTN How is presenting disease/condition affected by chronic disease/condition?: uneffected by Evaluation data The following diagnostics were reviewed and interpreted by me:: lab results and radiology exam(s) Lab and/or radiology exams considered but not ordered:: none Interpretation Summary: [facility] Preliminary Report Draft Patient: RADHA PENALOZA. Record#: [id number] Birthdate: 1960 Age/Sex: 64 / M Location: [facility] Attending Dr: Ordering Physician: Date of Service: Procedure(s): Accession Number(s): cc: ~ CT scan of the abdomen and pelvis with intravenous contrast (axial sections with sagittal and coronal reformats) February 22, 2025 0022 hours Clinical History: Abdominal pain, h/o cancer. Comparison: None available at the time of this report. Findings: The lung bases are clear. The pancreas, kidneys and adrenals are unremarkable. Irregular liver margins. Small hypodense lesions in the spleen, limited evaluation. No evidence of bowel obstruction. No evidence of appendicitis. Prominent mesenteric and retroperitoneal lymph nodes associated with mesenteric edema. The urinary bladder is nondistended, limited evaluation. There is no free air. Small ascites. Diffuse sclerotic bone lesions involving all the imaged vertebrae. Acute compression fractures in the vertebral bodies of L1, L2, and T8. Distal tip of a central line in the right atrium. Gallbladder wall thickening associated with peripheral edema. Gallstones. No biliary duct dilation. Enlarged prostate. Dilated left atrium. Impression: 1. Acute cholecystitis. 2. Diffuse metastatic bone disease. 3. Acute compression fractures in the vertebral bodies of L1, L2, and T8. 4. Prominent mesenteric and retroperitoneal lymph nodes associated with mesenteric fat stranding, possibly lymphoma. Please, correlate clinically. 5. Enlarged prostate. Consider correlation with PSA. 6. Cirrhosis. 7. Dilated left atrium. 8. Small hypodense lesions in the spleen, consider correlation with PET if clinically indicated. Discussion Details: Results verbally communicated to : Dr. Tan at 02:06 AM 02/22/2025 Report Electronically Signed By: Manjinder Alexandre 02/22/2025 2:08:14 AM Medications / Prescriptions Medications or Prescriptions considered but not ordered:: none Medication administrations:: none Consultations Consultation(s) initiated? (list below): No Diagnosis Differential diagnosis abdominal pain: acute appendicitis, constipation, diverticulitis and pancreatitis Most likely diagnosis given after review of the tests above:: see clinical impression below Admission Indicated Admission indicated?: not indicated Admission Request Was there a request for admission?: No Disposition Plan Disposition Plan: Discharge Discharge Attestation Discharge Attestation: The patient and all family members were given an opportunity to ask questions and understood the discharge instructions. Discharge instructions specifically effects, indications for sooner follow up or return to the emergency department, and the expected course of current diagnosis. Patient condition: Stable Discharge Plan Plan Patient Disposition: HOME (Self Care) Discharge Disposition comment: Stable Prescriptions/Referrals Prescriptions/Med Rec: New promethazine 12.5 mg tablet 12.5 mg PO TID PRN (Reason: nausea and vomiting) Qty: 14 0RF acetaminophen-codeine 300-15 mg tablet 1 tab PO Q8H PRN (Reason: pain) Qty: 14 0RF No Action acetaminophen 325 mg capsule 325 mg PO Q6H PRN (Reason: pain) allopurinol 300 mg tablet 300 mg PO QDAY sennosides [senna] 8.6 mg tablet 8.6 mg PO QDAY furosemide 20 mg tablet 20 mg PO QDAY metformin 500 mg tablet 500 mg PO BID ondansetron HCl 8 mg tablet 8 mg PO BID PRN (Reason: nausea and vomiting) oxycodone 5 mg capsule 5 mg PO Q6H PRN (Reason: pain) cholecalciferol (vitamin D3) 1,250 mcg (50,000 unit) capsule 1,250 mcg PO QWEEK prochlorperazine maleate [Compazine] 5 mg tablet 5 mg PO Q6H PRN (Reason: nausea and vomiting) Referrals: Suki Mireles MD [Primary Care Provider] - In 1 week Problem List Clinical Impression: Cirrhosis, Compression fracture of lumbar vertebra Patient/Caregiver Discharge Instructions Discharge Activity: activity as tolerated Diet Instructions: Low-fat diet. Education Materials: ED Cirrhosis, ED Fracture, Vertebral Compression Additional Instructions: Follow-up with primary care/oncologist for consideration of outpatient HIDA scan to delineate gallbladder inflammation. In the interim patient is instructed to maintain low-fat diet and medications as prescribed. Return for fever escalating abdominal pain persistent vomiting or worsening illness. Print Language: Japanese Stand Alone Forms: Valerie Award Info., Patient Portal Info Letter
[2025-02-22 01:42] VITALS: BP 135/83; PULSE 65; RESP 16; TEMP 36.4; O2SAT 97
--- NOTE | 2025-02-22 02:09 | PRELIM_ITS ---
PRELIM ADDENDUM The thickening of the gallbladder could either be due to cirrhosis or acute cholecystitis, the presence of mild pericholecystic edema is more worrisome for acute cholecystitis but could also be due to cirrhosis. Report Electronically Signed By: Manjinder Alexandre 02/22/2025 4:34:34 AM [EST] ORIGINAL PRELIM REPORT: CT scan of the abdomen and pelvis with intravenous contrast (axial sections with sagittal and coronal reformats) February 22, 2025 0022 hours Clinical History: Abdominal pain, h/o cancer. Comparison: None available at the time of this report. Findings: The lung bases are clear. The pancreas, kidneys and adrenals are unremarkable. Irregular liver margins. Small hypodense lesions in the spleen, limited evaluation. No evidence of bowel obstruction. No evidence of appendicitis. Prominent mesenteric and retroperitoneal lymph nodes associated with mesenteric edema. The urinary bladder is nondistended, limited evaluation. There is no free air. Small ascites. Diffuse sclerotic bone lesions involving all the imaged vertebrae. Acute compression fractures in the vertebral bodies of L1, L2, and T8. Distal tip of a central line in the right atrium. Gallbladder wall thickening associated with peripheral edema. Gallstones. No biliary duct dilation. Enlarged prostate. Dilated left atrium. Impression: 1. Acute cholecystitis. 2. Diffuse metastatic bone disease. 3. Acute compression fractures in the vertebral bodies of L1, L2, and T8. 4. Prominent mesenteric and retroperitoneal lymph nodes associated with mesenteric fat stranding, possibly lymphoma. Please, correlate clinically. 5. Enlarged prostate. Consider correlation with PSA. 6. Cirrhosis. 7. Dilated left atrium. 8. Small hypodense lesions in the spleen, consider correlation with PET if clinically indicated. Discussion Details: Results verbally communicated to : Dr. Tan at 02:06 AM 02/22/2025 Report Electronically Signed By: Manjinder Alexandre 02/22/2025 2:08:14 AM [EST]
[2025-02-22 04:23] VITALS: BP 130/68; PULSE 71; RESP 16; TEMP 36.7
== END 2025-02-22 05:14 | disposition home or self-care (01) ==
PROVIDERS: Physician Assistant; Emergency Provider Emergency Medicine; PCP Family Medicine
DX: K81.0 Acute cholecystitis (principal); C85.19 Unspecified B-cell lymphoma, extranodal and solid organ sites; E11.9 Type 2 diabetes mellitus without complications; I11.9 Hypertensive heart disease without heart failure; K59.09 Other constipation; K74.60 Unspecified cirrhosis of liver; N40.0 Benign prostatic hyperplasia without lower urinary tract symptoms; Z79.84 Long term (current) use of oral hypoglycemic drugs; Z95.0 Presence of cardiac pacemaker; Z95.5 Presence of coronary angioplasty implant and graft
CPT/HCPCS: 36415; 74177; 80053; 81001; 85025; 99283; A4649; Q9967

== ENCOUNTER 2025-03-04 07:54 | Outpatient (RCR) | payer MEDICAID, SELFPAY ==
[2025-02-16 10:17] LABS: Hematocrit 23.7 % (41.0-53.0)
[2025-02-16 10:22] LABS: Hemoglobin 7.6 g/dL (13.5-16.0)
--- NOTE | 2025-02-24 06:35 | CTCFLWUP_ITS ---
Patient: JOHNSON PENALOZA : 1960 Page 2 of 2 FOLLOW UP NOTE DATE OF SERVICE: 02/23/2025 NAME: JOHNSON PENALOZA ACCOUNT: [id number] : 1960 AGE: 64 INTERVAL HISTORY: Patient is here to follow-up on his diffuse large B-cell lymphoma. He is companied by his daughter. Patient states that he has increased appetite and is gaining weight. Patient want to go back to driving. No history of loss of memory or unconsciousness. Patient is able to walk with a walker as well as a little support with the wheelchair. Patient is able to take care of most of his ADLs. 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 Cardiovascular: Positive for feet swelling. Psychiatric: Positive for sadness, improved with treatment. Objective Vital Signs - Weight: 160 pounds Physical Examination General: Patient's weight noted to be 160 pounds. Musculoskeletal: Feet noted to be swollen. Laboratory, Imaging, and Diagnostic Test Results - Hemoglobin: 7.9 g/dL (low) - Ferritin: Very high - No imaging currently planned; will reassess after 6 cycles of treatment - Monitor labs closely ONCOLOGY HISTORY:?[facility] Oncology Hx? DIAGNOSIS: Diffuse large B-cell lymphoma, unspecified site [ICD10] C83.30 DATE OF DIAGNOSIS: 10/04/2024 STAGE/TNM: TREATMENT HISTORY: Care?Plan Start?Date Cycle Day Intent CHOP?+?Rituximab?375?mg/m*2?camacho 12/28/2024 1 21 Palliative HISTORY OF PRESENT ILLNESS: Patient here to establish care for diffuse large B-cell lymphoma. Patient received first cycle at [facility]. Patient do not have a port. Patient tolerated first cycle well OTHER MEDICAL HISTORY/CONDITIONS: Large B-cell Lymphoma- dx 10/04/24 Diabetes HTN Fx L1-L5 Denies ?Clone Other Med Hx? 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 Tobacco Use:?Quit - Smoked - trs - 04/15 PPD ETOH?Use:?Quit?1991?-?Drank?x?12?yrs Drug?Note:?Denies Social History Note:?Lives with and dtr ?Clone Social Hx? MEDICATIONS: 1. acetaminophen - 325 mg tab As directed 2. allopurinol - 300 mg 1 tab Daily 3. chlorhexidine gluconate - 0.12 % 15 mL Daily 4. Compazine - 5 mg 5 mg Daily 5. diclofenac sodium - 1 % Daily 6. docusate sodium - 50 mg 2 Capsule Twice a Day 7. doxycycline hyclate - 100 mg 1 tab Twice a Day 8. furosemide - 20 mg 1 tab Daily 9. lidocaine HCL - 2 6 2 Teaspoon Every 6 Hours 10. Maalox - 225-200 mg/5 mL 20 cc Every 6 Hours 11. metFORMIN - 500 mg 1 tab Twice a Day 12. nystatin - 100,000 unit/mL 2 Teaspoon Every 6 Hours 13. ondansetron - 8 mg 8 mg Daily 14. ondansetron - 4 mg 1 tab Twice a Day 15. ondansetron - 16 mg 1 tab every 8 hrs as needed for nausea 16. oxycodone - 5 mg 1 tab Every 6 Hours 17. pantoprazole - 40 mg 1 Daily 18. Protonix - 40 mg 1 tab Daily?Palabra Meds? Medications Last Reconciled by Stephanie Jiang MD on 02/23/2025 ALLERGIES: No Known Drug Allergies REVIEW OF SYSTEMS: A complete 14-point review of systems was performed and is negative except as noted in interval history. PHYSICAL EXAMINATION:?CloneBlock PE? VITAL SIGNS: Temperature?97.6, B/P?138/69, Oxygen?Saturation?97% Weight?162?lbs (Change?since?02/16/25:?-3?lbs) PAIN: 0 - No pain ECOG Performance Status: 1 - Symptomatic; ambulatory; restricted in strenuous activity GENERAL APPEARANCE: Appears well, in no apparent distress, appropriately interactive. HEENT: Normocephalic, no temporal wasting, normal conjunctiva, no scleral icterus, normal hearing, lips without lesions, neck normal range of motion. CARDIOVASCULAR: Not assessed. PULMONARY: Normal respiratory effort, no respiratory distress or use of accessory muscles, speaking in full sentences, no tachypnea. EXTREMITIES: No pedal edema or cyanosis. SKIN: Normal skin appearance. NEUROLOGIC: Alert and oriented x4. PSHYCHIATRIC: Appropriate affect, mood normal, behavior normal, intact thought and speech. Patient is in a wheelchair secondary to involvement of his spine with a tumor LABORATORY DATA: I have personally reviewed and interpreted each of the patient?s relevant lab tests, abnormal findings are below: Date 02/07/25 02/16/25 02/21/25 ??WHITE?BLOOD?COUNT?(Thou/mm3) ? ? 6.9 ??RED?BLOOD?COUNT?(Miln/mm3) ? ? 3.48?L ??HEMOGLOBIN?(gm/dl) ? 7.6?L 10.3?L ??HEMATOCRIT?(%) ? 23.7?L 32.0?L ??PLATELET?COUNT?(Thou/mm3) ? ? 200 ??NEUTROPHILS?%,?AUTO?(%) ? ? 72 ??LYMPH?%,?AUTO?(%) ? ? 8?L ??NEUTROPHILS,?AUTO?(Thou/mm3) ? ? 5.0 ??GLUCOSE,RANDOM?(mg/dL) 88 ? 114?H ??BLOOD?UREA?NITROGEN?(mg/dL) 12 ? 11 ??CREATININE?(mg/dL) 0.90 ? 0.80 ??SODIUM?(mmol/L) 145 ? 144 ??POTASSIUM?(mmol/L) 4.1 ? 3.3?L ??CHLORIDE?(mmol/L) 109?H ? 107 ??CrCl?(CandG)?(ml/min) 70.58 ? 80.01 ??AST/SGOT?(Unit/L) 16 ? 169?H ??ALT/SGPT?(Unit/L) <?7?L ? 45 ??ALKALINE?PHOSPHATASE?(Unit/L) 112 ? 512?H ??BILIRUBIN,?TOTAL?(mg/dL) 0.3 ? 1.1 ??PROTEIN?TOTAL?(gm/dl) 5.6?L ? 6.0 ??ALBUMIN,?SERUM?(gm/dl) 3.8 ? 4.1 ??GLOBULIN?(gm/dl) 1.8?L ? 1.9?L ??ALBUMIN/GLOBULIN?RATIO 2.1 ? 2.2 ??CALCIUM,?SERUM?(mg/dL) 9.5 ? 10.2 ??CALCIUM?SERUM?(CORRECTED)?(mg/dL) 9.7 ? 10.2?H ASSESSMENT/PLAN:?Kelli Ortiz Assessment/Plan? Johnson is a patient with diffuse large B-cell lymphoma who recently started chemotherapy and is showing clinical improvement with better appetite and mood. Diffuse large B-cell lymphoma Assessment: Patient with blood diffuse large B-cell lymphoma who started chemotherapy with reduction last Friday. He experienced initial fatigue and decreased appetite in the first couple of days post-treatment but is now showing clinical improvement with better appetite and eating. His mood has also improved from initial sadness, and having a treatment plan has helped reduce his overthinking about the process. The chemotherapy appears to be working based on his clinical response. Plan: - Continue current chemotherapy regimen - Follow-up in 2 months - Blood work after with transfusion as needed based on results - CT chest abdomen pelvis with IV contrast after treatment; - Monitor labs closely ORDERS: Order # Description [id number] CBC + Comprehensive Metabolic Panel [id number] Lab Appointment [id number] Follow Up Appointment [id number] CBC + Comprehensive Metabolic Panel [id number] Lab Appointment [id number] Follow Up Appointment [id number] CBC + Comprehensive Metabolic Panel [id number] Lab Appointment [id number] Follow Up Appointment RETURN TO CLINIC: I reviewed the diagnosis, prognosis, and recommended treatment/procedure options with the patient (and/or their legal renewals representative), including the potential benefits, risks, side effects and alternative therapies. We also discussed the option of no treatment and the possibility of clinical trial participation, if applicable. All questions were addressed, and they demonstrated understanding. They provided informed consent to proceed with the proposed plan of care. BILLING AND COMPLIANCE: I reviewed external records from providers outside my specialty as summarized above. I spent a total of 50 minutes on this patient?s care on the day of their visit excluding time spent related to any billed procedures. This time includes time spent with the patient as well as time spent documenting in the medical record, reviewing patients records and tests, obtaining history, placing orders, communicating with other healthcare professionals, counseling the patient, family or caregiver, and/or care coordination for the diagnoses above. Electronically Signed by: Salbador Ortiz MD T: 6:33 AM CC: PCP: Suki Mireles Referring: Suki Mireles This document was completed utilizing speech recognition software. Grammatical errors, random word insertions, pronoun errors, and incomplete sentences are an occasional consequence of this system due to software limitations, ambient noise, and hardware issues. Any formal questions or concerns about the content, text or information contained within the body of this dictation should be directly addressed to the provider for clarification.
[2025-03-01 13:07] LABS: Basophils # (Auto) 0.1 Thou/mm3 (0.0-0.2); Basophils % (Auto) 1 % (0-2.5); Eosinophils # (Auto) 0.0 Thou/mm3 (0.0-0.5); Eosinophils % (Auto) 0 % (0-10); Hematocrit 32.6 % (41.0-53.0); Hemoglobin 10.2 g/dL (13.5-16.0); Immature Granulocytes Auto 0.09 Thou/mm3 (0.00-0.00); Lymphocytes # (Auto) 0.9 Thou/mm3 (1.0-4.8); Lymphocytes % (Auto) 11 % (10-50); Mean Corpuscular HGB Conc 31.3 g/dl (31.0-37.0); Mean Corpuscular Hemoglobin 30.5 pg (25.0-35.0); Mean Corpuscular Volume 98 fL (80-100); Monocytes # (Auto) 0.5 Thou/mm3 (0.0-0.8); Monocytes % (Auto) 7 % (0-12); Neutrophils # (Auto) 6.1 Thou/mm3 (1.8-7.7); Neutrophils % (Auto) 80 % (37-80); Nucleated Red Blood Cell # 0.00 Thou/mm3 (0.00-0.00); Nucleated Red Blood Cell % 0 /100 WBC (0); Platelet Count 331 Thou/mm3 (140-440); RDW Standard Deviation 56.2 fL (35.1-43.9); Red Blood Count 3.34 Miln/mm3 (4.50-5.90); White Blood Count 7.6 Thou/mm3 (3.8-10.6)
[2025-03-01 13:37] LABS: Alanine Aminotransferase 10 U/L (10-49); Albumin, Serum 4.0 gm/dL (3.4-4.8); Albumin/Globulin Ratio 2.0 (1.2-2.2); Alkaline Phosphatase 169 U/L (46-116); Anion Gap 8 (7-16); Aspartate Amino Transferase 19 U/L (0-34); BUN/Creatinine Ratio 14 Ratio (12-20); Bilirubin,Total 0.3 mg/dL (0.3-1.2); Blood Urea Nitrogen 13 mg/dL (9-23); Calcium 9.8 mg/dL (8.3-10.6); Calcium (Corrected) 9.8 mg/dL (8.5-10.1); Carbon Dioxide 26.7 mMol/L (20.0-31.0); Chloride 109 mMol/L (98-107); Creatinine (Component) 0.9 mg/dL (0.6-1.3); Globulin 2.0 gm/dL (2.3-3.5); Glucose 92 mg/dL (74-106); LDH (Lactate Dehydrogenase) 335 U/L (120-246); Osmolality,Calculated 286 (275-295); Potassium 4.3 mMol/L (3.4-5.1); Sodium 144 mMol/L (136-145); Total Protein 6.0 gm/dL (5.7-8.2); Uric Acid 4.4 mg/dL (3.7-9.2); eGFR > 60 See Note
== END 2025-03-13 23:59 | disposition home or self-care (01) ==
LOC: SCTC 07:54
PROVIDERS: PCP Family Medicine; Referring Provider Family Medicine; Visit Provider Internal Medicine Hematology & Oncology
DX: Z51.11 Encounter for antineoplastic chemotherapy (principal); C83.33 Diffuse large B-cell lymphoma, intra-abdominal lymph nodes
CPT/HCPCS: 36415; 36430; 36591; 80053; 83615; 84550; 85014; 85018; 85025; 86850; 86900; 86901; 86923; 96367; 96372; 96411; 96413; 96415; 96417; 99212; A4216; J1100; J1434; J1642; J2469; J3490; J7040; J7050; J9000; J9075; J9370; P9016; Q5115; Q5122; A9270; G0463; J2506

== ENCOUNTER 2025-03-25 09:54 | Outpatient (RCR) | payer MEDICAID, SELFPAY ==
[2025-03-17 07:50] LABS: Basophils # (Auto) 0.1 Thou/mm3 (0.0-0.2); Basophils % (Auto) 1 % (0-2.5); Eosinophils # (Auto) 0.1 Thou/mm3 (0.0-0.5); Eosinophils % (Auto) 1 % (0-10); Hematocrit 27.8 % (41.0-53.0); Hemoglobin 9.0 g/dL (13.5-16.0); Immature Granulocytes Auto 0.47 Thou/mm3 (0.00-0.00); Lymphocytes # (Auto) 0.6 Thou/mm3 (1.0-4.8); Lymphocytes % (Auto) 7 % (10-50); Mean Corpuscular HGB Conc 32.4 g/dl (31.0-37.0); Mean Corpuscular Hemoglobin 30.3 pg (25.0-35.0); Mean Corpuscular Volume 94 fL (80-100); Monocytes # (Auto) 0.5 Thou/mm3 (0.0-0.8); Monocytes % (Auto) 6 % (0-12); Neutrophils # (Auto) 6.9 Thou/mm3 (1.8-7.7); Neutrophils % (Auto) 80 % (37-80); Nucleated Red Blood Cell # 0.02 Thou/mm3 (0.00-0.00); Nucleated Red Blood Cell % 0 /100 WBC (0); Platelet Count 273 Thou/mm3 (140-440); RDW Standard Deviation 49.2 fL (35.1-43.9); Red Blood Count 2.97 Miln/mm3 (4.50-5.90); White Blood Count 8.6 Thou/mm3 (3.8-10.6)
[2025-03-17 08:28] LABS: Alanine Aminotransferase < 7 U/L (10-49); Albumin, Serum 3.9 gm/dL (3.4-4.8); Albumin/Globulin Ratio 1.8 (1.2-2.2); Alkaline Phosphatase 106 U/L (46-116); Anion Gap 8 (7-16); Aspartate Amino Transferase 13 U/L (0-34); BUN/Creatinine Ratio 11 Ratio (12-20); Bilirubin,Total 0.3 mg/dL (0.3-1.2); Blood Urea Nitrogen 10 mg/dL (9-23); Calcium 10.1 mg/dL (8.3-10.6); Calcium (Corrected) 10.2 mg/dL (8.5-10.1); Carbon Dioxide 26.9 mMol/L (20.0-31.0); Chloride 108 mMol/L (98-107); Creatinine (Component) 0.9 mg/dL (0.6-1.3); Globulin 2.2 gm/dL (2.3-3.5); Glucose 127 mg/dL (74-106); Osmolality,Calculated 285 (275-295); Potassium 3.1 mMol/L (3.4-5.1); Sodium 143 mMol/L (136-145); Total Protein 6.1 gm/dL (5.7-8.2); eGFR > 60 See Note
[2025-03-22 09:31] LABS: Basophils # (Auto) 0.0 Thou/mm3 (0.0-0.2); Basophils % (Auto) 1 % (0-2.5); Eosinophils # (Auto) 0.0 Thou/mm3 (0.0-0.5); Eosinophils % (Auto) 0 % (0-10); Hematocrit 28.3 % (41.0-53.0); Hemoglobin 9.1 g/dL (13.5-16.0); Immature Granulocytes Auto 0.12 Thou/mm3 (0.00-0.00); Lymphocytes # (Auto) 0.7 Thou/mm3 (1.0-4.8); Lymphocytes % (Auto) 11 % (10-50); Mean Corpuscular HGB Conc 32.2 g/dl (31.0-37.0); Mean Corpuscular Hemoglobin 30.3 pg (25.0-35.0); Mean Corpuscular Volume 94 fL (80-100); Monocytes # (Auto) 0.5 Thou/mm3 (0.0-0.8); Monocytes % (Auto) 8 % (0-12); Neutrophils # (Auto) 5.0 Thou/mm3 (1.8-7.7); Neutrophils % (Auto) 78 % (37-80); Nucleated Red Blood Cell # 0.00 Thou/mm3 (0.00-0.00); Nucleated Red Blood Cell % 0 /100 WBC (0); Platelet Count 345 Thou/mm3 (140-440); RDW Standard Deviation 51.1 fL (35.1-43.9); Red Blood Count 3.00 Miln/mm3 (4.50-5.90); White Blood Count 6.4 Thou/mm3 (3.8-10.6)
[2025-03-22 10:11] LABS: Alanine Aminotransferase < 7 U/L (10-49); Albumin, Serum 3.8 gm/dL (3.4-4.8); Albumin/Globulin Ratio 1.6 (1.2-2.2); Alkaline Phosphatase 93 U/L (46-116); Anion Gap 10 (7-16); Aspartate Amino Transferase 12 U/L (0-34); BUN/Creatinine Ratio 14 Ratio (12-20); Bilirubin,Total 0.3 mg/dL (0.3-1.2); Blood Urea Nitrogen 13 mg/dL (9-23); Calcium 10.4 mg/dL (8.3-10.6); Calcium (Corrected) 10.6 mg/dL (8.5-10.1); Carbon Dioxide 27.4 mMol/L (20.0-31.0); Chloride 108 mMol/L (98-107); Creatinine (Component) 0.9 mg/dL (0.6-1.3); Globulin 2.4 gm/dL (2.3-3.5); Glucose 103 mg/dL (74-106); Osmolality,Calculated 288 (275-295); Potassium 4.0 mMol/L (3.4-5.1); Sodium 145 mMol/L (136-145); Total Protein 6.2 gm/dL (5.7-8.2); eGFR > 60 See Note
== END 2025-04-13 23:59 | disposition home or self-care (01) ==
LOC: SCTC 09:54
PROVIDERS: PCP Family Medicine; Referring Provider Family Medicine; Visit Provider Internal Medicine Hematology & Oncology
DX: Z51.11 Encounter for antineoplastic chemotherapy (principal); C83.33 Diffuse large B-cell lymphoma, intra-abdominal lymph nodes
CPT/HCPCS: 36591; 80053; 85025; 86850; 86900; 86901; 96360; 96361; 96367; 96372; 96411; 96413; 96415; A4216; J1100; J1434; J1642; J2469; J3490; J7030; J7040; J7050; J9000; J9075; J9370; Q5115; Q5122; A9270; J2506

== ENCOUNTER → 2025-03-25 | Outpatient (CLI) | payer MEDICAID, SELFPAY ==
--- NOTE | 2025-03-25 15:30 | ECHO_ITS ---
Patient Info Name: Johnson Fabian Age: 64 years : 1960 Gender: Male Ht: 155 cm Wt: 73 kg BSA: 1.80 m2 BP: 128 / 61 mmHg HR: 64 bpm Exam Date: 03/25/2025 3:57 PM Admit Date: 03/25/2025 Site: [facility] Room Number: ECHO Patient Status: O Exam Type: CA echo doppler complete Rn Perinatal: Yohana Hanna Ordering Physician: Salbador Ortiz Referring Physician: Salbador Ortiz Study Info Indications Diffuse large B-cell lymphoma, unspecified site - Primary Location: SDIM Left Ventricular Outflow Tract Name Value Normal LVOT 2D LVOT Diameter 1.9 cm LVOT Doppler LVOT Peak Velocity 117 cm/s LVOT Mean Gradient 3 mmHg LVOT VTI 26 cm LVOT VTI/AV VTI Ratio 0.8 LVOT Stroke Volume 73 ml Pulmonic Valve Name Value Normal PV Doppler PV Peak Velocity 99 cm/s Mitral Valve Name Value Normal MV Doppler MV Decel Nelson 520 cm/s2 MV PHT 42 ms MV Area (PHT) 5.3 cm2 4.0-5.0 MV Diastolic Function MV E Peak Velocity 75 cm/s MV A Peak Velocity 63 cm/s MV E/A 1.2 MV Annular TDI MV Septal e' Velocity 7.1 cm/s MV E/e' (Septal) 10.6 MV Lateral e' Velocity 10.6 cm/s MV E/e' (Lateral) 7.1 MV e' Average 8.84 cm/s MV E/e' (Average) 8.9 Tricuspid Valve Name Value Normal TV Regurgitation Doppler TR Peak Velocity 204 cm/s Estimated PAP/RSVP RA Pressure 3 mmHg <=5 PA Systolic Pressure 20 mmHg <36 RV Systolic Pressure 20 mmHg <36 Aortic Valve Name Value Normal AV 2D/MM AV Cusp Sep (MM) 1.6 cm AV Doppler AV Peak Velocity 140 cm/s AV Mean Gradient 5 mmHg AV VTI 33 cm AV Area (Cont Eq VTI) 2.2 cm2 >=3.0 AV Area (Cont Eq Praveen) 2.4 cm2 AV DI (Praveen) 0.84 AV Regurgitation 2D LVOT Area 2.8 cm2 Ventricles Name Value Normal LV Dimensions 2D/MM IVS Diastolic Thickness (2D) 0.9 cm 0.6-1.0 LVID Diastole (2D) 5.9 cm 4.2-5.8 LVIW Diastolic Thickness (2D) 1.1 cm 0.6-1.0 LVID Systole (2D) 3.9 cm 2.5-4.0 LVOT Diameter 1.9 cm LV Mass (2D Cubed) 239.93 g 88.00-224.00 LV Mass Index (2D Cubed) 133 g/m2 49-115 Relative Wall Thickness (2D) 0.37 <=0.42 IVS/LVIW Diastolic Thickness (2D) 0.82 0.00-1.50 LV Fractional Shortening/Ejection Fraction 2D/MM LV Fractional Shortening (2D) 34 % 25-43 LV EF (2D Teichholz) 62 % Atria Name Value Normal LA Dimensions LA Volume (4C A-L) 66 ml LA Volume (BP A-L) 64 ml Left Ventricle Left ventricular chamber dimension is normal. Left ventricular systolic function is normal with visually estimated ejection fraction of 60-65%. There is normal geometry noted in the left ventricle. Left ventricular segmental wall motion is normal. There is normal diastolic function in the left ventricle. Right Ventricle Right ventricular chamber dimension is normal. Right ventricular systolic function is normal. Left Atrium Left atrial chamber dimension is normal. Right Atrium Right atrial chamber dimension is normal. Aortic Valve The aortic valve is trileaflet. There is mild aortic valve sclerosis. There is no aortic valve stenosis with a peak velocity of 140 cm/s, mean gradient of 5 mmHg, and aortic valve area of 2.2 cm2. There is trace aortic valve regurgitation. Pulmonic Valve The pulmonic valve is normal. There is no pulmonic valve stenosis. There is trace pulmonic regurgitation. Mitral Valve The mitral valve has normal leaflets. There is no mitral valve stenosis. There is trace mitral valve regurgitation. Tricuspid Valve The tricuspid valve leaflets are normal. There is no tricuspid valve stenosis. There is trace tricuspid valve regurgitation. No pulmonary hypertension, estimated pulmonary arterial systolic pressure is 20 mmHg and systemic blood pressure of 128 mmHg in systole. Pericardium/Pleural The pericardium appears normal. There is trivial pericardial effusion with no tamponade. No pleural effusion visualized. Inferior Vena Cava Normal inferior vena cava with >50% collapse upon inspiration consistent with normal right atrial pressure, 3 mmHg. Aorta The aortic measurements are indexed to age and body surface area. The aortic root at the sinus of Valsalva is not well visualized. The prox ascending aorta is not well visualized. Summary 1. Left ventricle size is normal and systolic function is normal. Estimated ejection fraction is 60-65%. There is normal diastolic function. 2. Right ventricle chamber size is normal and systolic function is normal. Estimated RVSP is 20 mmHg. 3. There is mild aortic valve sclerosis with no stenosis and trace regurgitation. 4. There is trace mitral and tricuspid valve regurgitation. 5. Normal IVC with estimated RA pressure 3 mmHg. 6. There is trivial pericardial effusion with no tamponade. Report Signatures Finalized by Yessi Escobar on 03/26/2025 12:26 AM
== END | disposition home or self-care (01) ==
PROVIDERS: PCP Family Medicine; Referring Provider Internal Medicine Hematology & Oncology; Visit Provider Internal Medicine Hematology & Oncology
DX: I35.8 Other nonrheumatic aortic valve disorders (principal); I08.1 Rheumatic disorders of both mitral and tricuspid valves; C83.30 Diffuse large B-cell lymphoma, unspecified site; I31.39 Other pericardial effusion (noninflammatory)
CPT/HCPCS: 93306